=== PATIENT | male | born 1960 | race Caucasian/White ===

== ENCOUNTER 2020-11-04 17:16 | Emergency (ER) | payer BC, MEDICAID ==
[~2020-11-04] VITALS: Ht 177.8 cm; Wt 102.7 kg
[2020-11-04 18:25] LABS: BASOPHILS # (AUTO) 0.1 X10'3 (0-0.2); BASOPHILS % (AUTO) 0.9 % (0-1); EOSINOPHILS # (AUTO) 0.1 X10'3 (0-0.9); EOSINOPHILS % (AUTO) 1.4 % (0-6); HEMATOCRIT 46.5 % (42.0-52.0); LYMPHOCYTES % (AUTO) 25.7 % (21-51); MEAN CORPUSCULAR HGB CONC 34.3 g/dL (33.0-36.5); MEAN CORPUSCULAR VOLUME 90.2 FL (78-98); MEAN PLATELET VOLUME 7.8 FL (7.4-10.4); MONOCYTES # (AUTO) 0.6 X10'3 (0-0.9); MONOCYTES % (AUTO) 7.3 % (2-12); NEUTROPHILS # (AUTO) 5.1 X10'3 (1.8-7.7); NEUTROPHILS % (AUTO) 64.7 % (42-75); PLATELET COUNT 233 X10'3 (140-440); RED BLOOD COUNT 5.15 X10'6 (4.70-6.10); RED CELL DISTRIBUTION WIDTH 13.3 % (11.5-14.5); WHITE BLOOD COUNT 7.8 X10'3 (4.5-11.0)
[2020-11-04 18:53] LABS: ALANINE AMINOTRANSFERASE 21 U/L (12-78); ALBUMIN/GLOBULIN RATIO 1.1 (1.1-1.5); ALKALINE PHOSPHATASE 58 IU/L (46-116); ANION GAP 9 (8-16); ASPARTATE AMINO TRANSFERASE 14 U/L (10-37); BILIRUBIN,TOTAL 0.6 MG/DL (0.1-1.0); BLOOD UREA NITROGEN 12 MG/DL (7-18); BUN/CREATININE RATIO 12.1 (5.4-32.0); CALCIUM 9.3 MG/DL (8.5-10.1); CHLORIDE 104 MMOL/L (99-107); CREATININE 0.99 MG/DL (0.60-1.10); GLUCOSE 146 MG/DL (70-104); SODIUM 140 MMOL/L (135-145); TOTAL CARBON DIOXIDE 27.5 MMOL/L (24-32); TOTAL PROTEIN 7.5 G/DL (6.4-8.2); eGFR 77 ML/MIN
[2020-11-04 21:09] VITALS: BP 137/83
== END 2020-11-04 21:10 | disposition home or self-care (01) ==
LOC: ER 17:17
DX: R07.89 Other chest pain (principal); E11.9 Type 2 diabetes mellitus without complications; G89.29 Other chronic pain; F17.200 Nicotine dependence, unspecified, uncomplicated
CPT/HCPCS: 36415; 71045; 80053; 83880; 84484; 85025; 93005; 99285

== ENCOUNTER 2020-11-11 14:54 | Emergency (ER) | payer BC ==
[~2020-11-11] VITALS: Ht 175.3 cm; Wt 110.0 kg
[2020-11-11] MEDS ORDERED: GADOTERATE MEGLUMINE 7.5 MMOL/15 ML VIAL IV ONE (19:41)
[2020-11-11 20:49] VITALS: BP 155/78
== END 2020-11-11 20:50 | disposition home or self-care (01) ==
LOC: ER 14:55
DX: R20.0 Anesthesia of skin (principal); R51.9 Headache, unspecified; E11.9 Type 2 diabetes mellitus without complications; G89.29 Other chronic pain; F17.200 Nicotine dependence, unspecified, uncomplicated
CPT/HCPCS: 70450; 70551; 72125; 72141; 82948; 93005; 99285; A9575

== ENCOUNTER 2024-02-21 13:09 | Outpatient (CLI) | payer OTHER ==
[~2024-02-21] VITALS: Ht 172.7 cm; Wt 104.3 kg
[2024-02-21] MEDS ORDERED: LOSA100T58 PO (14:10)
[2024-02-21] MEDS ORDERED: [UNRECOGNIZED DRUG - OTHER] PO (14:10)
[2024-02-21] MEDS ORDERED: IBUP-1985 PO (14:10)
[2024-02-21] MEDS ORDERED: FLUT1BLS13 PO (14:10)
[2024-02-21] MEDS ORDERED: ROSU10TA28 PO (14:10)
[2024-02-21] MEDS ORDERED: CYAN-34 PO (14:10)
[2024-02-21] MEDS ORDERED: BUPR-317 PO (14:10)
[2024-02-21] MEDS ORDERED: METF-900 PO (14:10)
[2024-03-06] MEDS ORDERED: tranexamic acid inj. 1,000 MG in normal saline IV soln 100ML IV ONE (05:30)
[2024-03-06] MEDS ORDERED: cefazolin 2gm/D5W 100mL 100 ML IV ONE (05:30)
[2024-03-06] MEDS ORDERED: famotidine 20mg tablet PO ONE (05:30)
[2024-03-06] MEDS ORDERED: ringers solution, lacted 1,000 ML IV SCH (05:30)
[2024-03-06] MEDS ORDERED: oxymetazoline 15 ML nasal spray NS ONE ×2 (05:30→07:00)
[2024-03-06] MEDS ORDERED: methylPREDNISolone acetate 80mg/ml inj**IM only ONE (06:59)
[2024-03-06] MEDS ORDERED: LIDOcaine 1% W/epiNEPHrine 1:100,000 20ml vial ONE ×2 (06:59→07:26)
[2024-03-06] MEDS ORDERED: cocaine 4% topical solution 4ml bottle ONE (06:59)
[2024-03-06] MEDS ORDERED: mupirocin 2% ointment 22GM ONE ×2 (06:59→08:03)
[2024-03-06] MEDS ORDERED: gelatin sponge, absorbable (Gelfoam 100) sponge TP ONE (07:00)
[2024-03-27] MEDS ORDERED: tranexamic acid inj. 1,000 MG in normal saline IV soln 100ML IV ONE (05:30)
[2024-03-27] MEDS ORDERED: ringers solution, lacted 1,000 ML IV SCH (05:30)
[2024-03-27] MEDS ORDERED: famotidine 20mg tablet PO ONE (05:30)
[2024-03-27] MEDS ORDERED: cefazolin 2gm/D5W 100mL 100 ML IV ONE (05:30)
[2024-04-12] MEDS ORDERED: CARV-50 PO (11:44)
[2024-04-12] MEDS ORDERED: DAPA5TAB PO (11:44)
[2024-04-12] MEDS ORDERED: MECL-302 PO (11:44)
== END 2024-02-21 23:59 | disposition home or self-care (01) ==
LOC: LAB 13:09 → EDSTATUS 04-03 09:00
PROVIDERS: ATTEND Otolaryngology
DX: Z01.818 Encounter for other preprocedural examination (principal); J34.2 Deviated nasal septum; J34.3 Hypertrophy of nasal turbinates; J32.9 Chronic sinusitis, unspecified
CPT/HCPCS: J0690; J1040; J3490; J7120

== ENCOUNTER 2024-04-17 10:51 | Day surgery (SDC) | payer OTHER ==
[2024-04-17] VITALS (28 sets, daily range): BP systolic 127–200; BP diastolic 76–108; PULSE 70–87; RESP 13–25; TEMP 98; O2SAT 93–100
[~2024-04-17] VITALS: Ht 172.7 cm; Wt 104.4 kg
[2024-04-17] MEDS: cefazolin 2gm/D5W 100mL 100 ML IV ONE (05:30)
[2024-04-17] MEDS: tranexamic acid inj. 1,000 MG in normal saline IV soln 100ML IV ONE (05:30)
[~2024-04-17 10:51] MED LIST: BUPR-317 PO; CARV-50 PO; CYAN-34 PO; DAPA5TAB PO; DOCUMENT DATE & TIME OF BETA-BLOCKER PO ONE; FLUT1BLS13 PO; IBUP-1985 PO; LIDOcaine 1% w/EPI 1:100,000 inj. MDV 50 ML VIAL ONE; LOSA100T58 PO; MECL-302 PO; METF-900 PO; ROSU10TA28 PO; [UNRECOGNIZED DRUG - OTHER] PO; cocaine 4% topical solution 4ml bottle ONE; epiNEPHrine 1 mg/ml 30ml MDV ONE; mupirocin 2% ointment 22GM ONE; oxymetazoline 15 ML nasal spray NS ONE
[2024-04-17] MEDS: oxymetazoline 15 ML nasal spray NS ONE (11:21)
[2024-04-17] MEDS: ringers solution, lacted 1,000 ML IV SCH ×2 (11:21→17:42)
[2024-04-17] MEDS: famotidine 20mg tablet PO ONE (11:22)
[2024-04-17] MEDS ORDERED: sevoflurane 250ml liquid IH ONE (12:52)
[2024-04-17] MEDS ORDERED: fentaNYL/PF 50MCG/1 ML 2ML syringe ONE (13:01)
[2024-04-17] MEDS ORDERED: midazolam 1 mg/ML 2ml injection ONE (13:01)
[2024-04-17] MEDS ORDERED: tranexamic acid 100mg/ml inj. ONE (13:02)
[2024-04-17] MEDS: lidocaine 1%/epinephrine 1:100,000 inj. 50ml multi-dose vial IJ ONE (13:10)
[2024-04-17] MEDS ORDERED: morphine 2 MG/ML inj. syringe IV PRN ×2 (13:40)
[2024-04-17] MEDS ORDERED: ringers solution, lacted 1,000 ML IV SCH (13:40)
[2024-04-17] MEDS ORDERED: proCHLORperazine 10 MG/2 ml inj IV PRN ×2 (13:40)
[2024-04-17] MEDS ORDERED: ondansetron/PF 4mg/2ml inj IV PRN ×2 (13:40)
[2024-04-17] MEDS ORDERED: meperidine/PF 25mg/ml syringe IV PRN ×4 (13:40)
[2024-04-17] MEDS ORDERED: morphine 4 MG/ML inj SYRINge IV PRN (13:40)
[2024-04-17] MEDS ORDERED: LIDOcaine 1% W/epiNEPHrine 1:100,000 20ml vial ONE (13:44)
[2024-04-17] MEDS ORDERED: dexamethasone sod phosphate 4mg/ml inj. ONE (14:34)
[2024-04-17] MEDS ORDERED: propofol inj 20 ML IV ONE ×2 (14:34)
[2024-04-17] MEDS ORDERED: ondansetron/PF 4mg/2ml inj ONE (14:34)
[2024-04-17] MEDS: labetalol 20mg/4ml (5mg/ml) syringe IV PRN (15:30)
[2024-04-17] MEDS: meperidine/PF 25mg/ml syringe IV PRN ×2 (15:30→17:31)
[2024-04-17] MEDS ORDERED: LORazepam 2 mg/ml vial IV ONE (16:50)
[2024-04-17] MEDS: diazepam inj 5 MG/ML inj. IV ONE (16:57)
[2024-04-17] MEDS: enalaprilat dihydrate 2.5mg/2ml vial IV PRN (17:11)
[2024-04-17] MEDS: morphine 4 MG/ML inj SYRINge IV PRN (17:15)
[2024-04-17] MEDS: acetaminophen 1,000mg/100ml IV 100 ML IV ONE (17:44)
[2024-04-17] MEDS: hydrALAZINE 20mg/ml inj. IV PRN (17:48)
[2024-04-17] MEDS: salt irrigation nasal spray 45 ML SPRAY NS ONE (17:59)
[2024-04-17] MEDS: mupirocin 2% nasal ointment 1gm UD NS ONE (18:00)
[2024-04-17] MEDS ORDERED: oxymetazoline 15 ML nasal spray NS ONE (20:00)
== END 2024-04-17 18:28 | disposition home or self-care (01) ==
LOC: PAS 10:51
PROVIDERS: ATTEND Otolaryngology
DX: J34.2 Deviated nasal septum (principal); J34.3 Hypertrophy of nasal turbinates; J32.9 Chronic sinusitis, unspecified; I10 Essential (primary) hypertension; E11.9 Type 2 diabetes mellitus without complications; E66.9 Obesity, unspecified; F41.9 Anxiety disorder, unspecified; F32.A Depression, unspecified; Z79.1 Long term (current) use of non-steroidal anti-inflammatories (NSAID); Z79.84 Long term (current) use of oral hypoglycemic drugs; Z79.899 Other long term (current) drug therapy; Z68.35 Body mass index [BMI] 35.0-35.9, adult
CPT/HCPCS: 30140; 30520; 31254; 31267; 61782; 82948; A6402; J0131; J0171; J0360; J0690; J1100; J2175; J2250; J2270; J2405; J2704; J3010; J3360; J3490; J7030; J7050; J7120; Z7506; Z7508; Z7512; A4618; A6449; A7000